=== PATIENT | female | born 1955 | race Caucasian/White ===

== ENCOUNTER 2021-02-20 06:07 | Outpatient (REF) | payer OTHER, SELFPAY ==
[2021-02-20 11:33] LABS: Glucose Urine UA NEG (NEG); Leukocyte Esterase Urine NEG (NEG); Nitrite Urine NEG (NEG); Specific Gravity - Urine 1.015 (1.005-1.025); Urine Blood NEG (NEG); Urine Ketones NEG (NEG); Urine Protein NEG (NEG-TRACE)
[2021-02-20 11:35] LABS: Appearance Urine HAZY; Color Urine YELLOW
[2021-02-20 11:41] LABS: Hematocrit 44.6 % (37-47); Hemoglobin 14.5 g/dl (12.0-16.0); Mean Corpuscular HGB Conc 32.5 g/dl (31.0-35.0); Mean Corpuscular Hemoglobin 29.9 pg (27.0-33.0); Mucus Urine 1+ /LPF; Platelet Count 299 X10*3/uL (160-400); RBC Urine 0-2 /HPF (0); Red Blood Count 4.85 X10*6/uL (4.20-5.50); Red Cell Distribution Width 13.3 % (11.0-16.0); Squamous Epithelial Cell Urine 1+ /LPF; WBC Urine 0-2 /HPF (0-4); White Blood Count 6.6 X10*3/uL (4.8-10.8)
[2021-02-20 12:09] LABS: Alanine Aminotransferase 20 U/L (0-31); Albumin Level 4.2 g/dL (3.5-5.0); Alkaline Phosphatase 85 U/L (39-117); Anion Gap 15 (12-20); Aspartate Amino Transferase 24 U/L (5-31); Bilirubin Total 0.6 mg/dL (0.0-1.0); Blood Urea Nitrogen 20 mg/dL (9-16); Calcium 9.1 mg/dL (8.4-10.2); Carbon Dioxide 25 mmol/L (22-29); Chloride 105 mmol/L (96-108); Cholesterol 282 mg/dL; Estimated Glomerular Filt Rate > 60; Glucose Fasting 103 mg/dL (60-99); HDL Cholesterol 68 mg/dL; LDL Cholesterol Calculated 200 mg/dl; Potassium 4.5 mmol/L (3.3-5.1); Sodium 140 mmol/L (135-145); Total Protein 6.7 g/dL (6.5-8.0); Triglycerides 72 mg/dL
[2021-02-20 12:13] LABS: TSH reflex Free T4 1.76 uIU/mL (0.32-4.0); Vitamin D 25-OH Total 31.7 ng/mL (>30)
== END 2021-02-20 06:08 | disposition home or self-care (01) ==
LOC: HO.HMGCLDS 06:07
PROVIDERS: PCP Internal Medicine; Visit Provider Internal Medicine
DX: Z00.00 Encounter for general adult medical examination without abnormal findings (principal); M81.0 Age-related osteoporosis without current pathological fracture; E78.5 Hyperlipidemia, unspecified
CPT/HCPCS: 36415; 80053; 80061; 81001; 82306; 84443; 85027

== ENCOUNTER 2021-03-05 09:27 | Outpatient (REF) | payer OTHER, SELFPAY ==
[2021-03-07 21:27] LABS: HPV mRNA E6/E7 Not Detected (Not Detected)
== END 2021-03-05 09:28 | disposition home or self-care (01) ==
LOC: HO.LAB 09:27
PROVIDERS: Visit Provider Internal Medicine
DX: Z01.419 Encounter for gynecological examination (general) (routine) without abnormal findings (principal); Z11.51 Encounter for screening for human papillomavirus (HPV); M85.80 Other specified disorders of bone density and structure, unspecified site; E78.5 Hyperlipidemia, unspecified
CPT/HCPCS: 87624; 88142

== ENCOUNTER 2021-03-24 15:48 | Outpatient (REF) | payer OTHER, SELFPAY ==
--- NOTE | ~2021-03-24 | MM_ITS ---
EXAMINATION: MM SCREENING DIGITAL BREAST TOMOSYNTHESIS, BILATERAL CLINICAL INFORMATION: Screening. Asymptomatic. The lifetime risk of breast cancer based on the Tyrer-Cuzick Model is 7.8%. COMPARISON: Mammography: February 15, 2020 and February 02, 2018 as well as July 27, 2016 TECHNIQUE: Digital breast tomosynthesis is performed in both the craniocaudal and mediolateral oblique views along with computer-aided detection (CAD). Synthesized 2D images are generated from the tomosynthesis. FINDINGS: There are scattered areas of fibroglandular density (ACR BI-RADS breast composition Category b). There are no significant masses, abnormal calcifications, or other abnormalities. MM/MM tomosynthesis screening BI IMPRESSION: There are no significant changes from prior study. ASSESSMENT: BI-RADS 1: Negative RECOMMENDATION: Routine annual mammography screening. This patient's information was entered into a reminder system with a target due date for their next mammogram.
== END 2021-03-24 15:49 | disposition home or self-care (01) ==
LOC: HO.MAMMO 15:48
PROVIDERS: Visit Provider Internal Medicine
DX: Z12.31 Encounter for screening mammogram for malignant neoplasm of breast (principal)
CPT/HCPCS: 77063; 77067

== ENCOUNTER 2021-06-05 09:12 | Day surgery (SDC) | payer OTHER, SELFPAY ==
--- NOTE | 2021-06-04 10:54 | HO.ANESPROP2 ---
Documented by User: Prabha Bro NP 06/04/21 10:56 HPI - Anesthesia Eval Consult details Narrative: 66yo F for Colonoscopy PMFSH Active Problems Active Problems: All Active Problems (Updated 05/29/21 @ 14:39 by Leda Lamas, [place]) Osteopenia (Acute) Mammogram normal (Acute) Lower back pain (Acute) Annual physical exam (Acute) Hyperlipidemia (Acute) Past Medical History Medical History Annual physical exam Hiatal hernia Hyperlipidemia Lower back pain Mammogram normal Osteopenia Family History Family History Other Mental health disorder Substance use disorder Surgical History Surgical History (Updated 05/29/21 @ 14:39 by Leda Lamas RN) History of History of left hip replacement History of melanoma excision Hx of colonoscopy Social History Social History Housing: House Patient Tobacco Use Status: Never used Tobacco Second Hand Smoke Exposure: Yes (as a child) Use of substances other than those prescribed or required for medical reasons: No Are you DNR?: No Advance Directives: Yes Advance Directives on File: Yes Advance Directives Date on File: 06/05/21 Recently lost weight without trying: No Nutrition Risks: No Nutritional Risk Current occupational status: employed Meds Allergies Allergy/AdvReac Type Severity Reaction Status Date / Time clindamycin Allergy Rash Verified 06/05/21 09:37 sulfamethoxazole Allergy Rash Verified 06/05/21 09:37 [From Bactrim] trimethoprim [From Bactrim] Allergy Rash Verified 06/05/21 09:37 Home Medications Medication Instructions Recorded Confirmed Last Taken Type cholecalciferol (vitamin D3) 50 50 mcg PO DAILY 05/29/21 05/29/21 Unknown History mcg (2,000 unit) capsule (Vitamin D3) fiber 05/29/21 05/29/21 Unknown History omega 4-gzq-lal-fish oil 1,200 mg cap PO 05/29/21 Unknown History (144 mg-216 mg) capsule (Fish Oil) Exam Exam Date and Time: June 04, 2021 1054 Pertinent Lab Results Pertinent Lab Results: Laboratory Tests 02/20/21 02/20/21 06:18 06:18 WBC 6.6 Hgb 14.5 Hct 44.6 Plt Count 299 Sodium 140 Potassium 4.5 Chloride 105 Carbon Dioxide 25 BUN 20 H Creatinine 0.83 Assessment and Plan Assessment Anesthesia Assessment: Chart Reviewed Documented by User: Rose Lebron MD 06/05/21 11:13 PMF Past Medical History Medical History Annual physical exam Hiatal hernia Hyperlipidemia Lower back pain Mammogram normal Osteopenia Functional capacity: independent ambulation Patient : No Family History Family History Other Mental health disorder Substance use disorder Family history of problems with anesthesia: No Surgical History Surgical History (Updated 05/29/21 @ 14:39 by Leda Lamas RN) History of History of left hip replacement History of melanoma excision Hx of colonoscopy History of Problems with Anesthesia: No Social History Social History Housing: House Patient Tobacco Use Status: Never used Tobacco Second Hand Smoke Exposure: Yes (as a child) Use of substances other than those prescribed or required for medical reasons: No Are you DNR?: No Advance Directives: Yes Advance Directives on File: Yes Advance Directives Date on File: 06/05/21 Recently lost weight without trying: No Nutrition Risks: No Nutritional Risk Current occupational status: employed Meds Allergies Allergy/AdvReac Type Severity Reaction Status Date / Time clindamycin Allergy Rash Verified 06/05/21 09:37 sulfamethoxazole Allergy Rash Verified 06/05/21 09:37 [From Bactrim] trimethoprim [From Bactrim] Allergy Rash Verified 06/05/21 09:37 Home Medications Medication Instructions Recorded Confirmed Last Taken Type cholecalciferol (vitamin D3) 50 50 mcg PO DAILY 05/29/21 05/29/21 Unknown History mcg (2,000 unit) capsule (Vitamin D3) fiber 05/29/21 05/29/21 Unknown History omega 5-qbs-wri-fish oil 1,200 mg cap PO 05/29/21 Unknown History (144 mg-216 mg) capsule (Fish Oil) Exam Airway Mallampati Class: II TM Dist: >3cm Neck ROM: Full Heart: RRR Lungs: CTA Assessment and Plan Final Anesthetic Review Family History of Problems with Anesthesia: No History of Problems with Anesthesia: No
[2021-06-05 09:38] VITALS: BMI 25.7
[2021-06-05 09:48] VITALS: BP 133/74; PULSE 73; RESP 16; TEMP 36.7; O2SAT 98
[2021-06-05] MEDS: Lactated Ringers 1,000 ML 100 ML IVCONT (10:04)
[2021-06-05] MEDS: Ampicillin Sodium 2 GM in 0.9 % Sodium Chloride 100 ML IV (10:12)
[2021-06-05] MEDS: Gentamicin Sulfate/NaCl 80 MG/100 ML PIGGYBACK 100 MG IV (10:32)
[2021-06-05 12:06] VITALS: BP 82/46; PULSE 80; RESP 16; TEMP 36.7; O2SAT 96
--- NOTE | 2021-06-05 12:07 | P.BOP_ITS ---
Brief Operative Note Date of Service: 06/05/21 Pre-op diagnosis: Screening Post-op diagnosis: other (Rectal polyps) Procedure: Colonoscopy to the cecum with snare polypectomy x 2 Surgeon: Casimiro Holloway Anesthesia: MAC Was an Carpet Layer Helper used for this Procedure?: No Estimated blood loss (mL): 2.0 Pathology: other (A. Rectal polyps) Condition: stable Disposition: PACU
[2021-06-05 12:21] VITALS: BP 102/59; PULSE 67; RESP 16; TEMP 36.7; O2SAT 98
--- NOTE | 2021-06-05 14:00 | HO.POSTANES ---
Post Anesthesia Evaluation Post Anesthesia Evaluation Vital Signs: Vital Signs Temp Pulse Resp BP Pulse Ox 06/05/21 12:21 98.0 F 67 16 102/59 L 98 06/05/21 12:06 98.0 F 80 16 82/46 L 96 06/05/21 09:48 98.0 F 73 16 133/74 98 Anesthesia: Monitored Mental Status: Awake Pain Control: Satisfactory Nausea/Vomiting: None Hydration: Adequate Anesthesia-Related Issues: No Anes. Related Issues
--- NOTE | 2021-06-05 22:30 | OP_ITS ---
SURGEON: Casimiro Holloway MD INDICATIONS: The patient presents for evaluation of personal history of colon polyps and colorectal cancer screening. Full consent has been obtained from her for this, including risks of bleeding and perforation. PREOPERATIVE DIAGNOSIS: POSTOPERATIVE DIAGNOSIS: PROCEDURE PERFORMED: Colonoscopy to cecum with snare polypectomy. ESTIMATED BLOOD LOSS: COMPLICATIONS: ANESTHESIA: Monitored anesthesia care. ASSISTANTS: SPECIMENS: PREOPERATIVE DIAGNOSES: Colorectal cancer screening and personal history of colon polyps. POSTOPERATIVE DIAGNOSES: Colorectal cancer screening and personal history of colon polyps, rectal polyps, diverticulosis and internal hemorrhoids. DESCRIPTION OF PROCEDURE: The patient was placed in the left lateral decubitus position. The digital rectal exam revealed no abnormalities. The Olympus video pediatric colonoscope was entered into the rectum and advanced easily to the cecum. Once in the cecum, I did identify normal-appearing cecal pouch with appendiceal orifice and a normal-appearing ileocecal valve. The entire cecum and ileocecal valve appeared normal. There was transillumination of light deep in the right lower quadrant. The scope was slowly withdrawn assessing all mucosal surfaces carefully. Preparation was excellent. There was a moderate amount of sigmoid diverticulosis. I did not visualize any sign of colitis nor angiodysplasia. The only polyps I visualized were in the distal rectum seen in the retroflexed position. There was one approximately 8 mm in diameter and grossly adenomatous, which was snared and recovered by suction. There was a small approximately 4 or 5 mm polyp, which was also snared and recovered by suction. Both polypectomy sites appeared clean, without any sign of residual polyp nor bleeding. Some small internal hemorrhoids were noted as well. The scope was straightened out and withdrawn from the patient. She tolerated the procedure well and was returned to the recovery area in stable condition. IMPRESSION: 1. Colon polyps, status post snare polypectomy. 2. Diverticulosis. 3. Internal hemorrhoids. PLAN: The results of the biopsies will be checked. I would recommend a repeat colonoscopy in 5 years for further surveillance. She was advised not to use any aspirin and NSAIDs for 1 week. She did receive preprocedure antibiotics for prophylaxis in regard to a hip replacement from last year and will be given a prescription for amoxicillin to use later today. MD ISADORA Warren/ELAN / [phone]
== END 2021-06-05 12:50 | disposition home or self-care (01) ==
PROVIDERS: PCP Internal Medicine; Visit Provider Internal Medicine
PROC: 0DJD8ZZ Inspection of Lower Intestinal Tract, Via Natural or Artificial Opening Endoscopic (ICD-10-PCS; CPT 45378; principal; 2021-06-05 10:50)
DX: Z12.11 Encounter for screening for malignant neoplasm of colon (principal); D12.8 Benign neoplasm of rectum; K57.30 Diverticulosis of large intestine without perforation or abscess without bleeding; K64.8 Other hemorrhoids; Z86.010 Personal history of colon polyps
CPT/HCPCS: 45385; 88305; J0290; J1580

== ENCOUNTER 2022-02-16 14:43 | Outpatient (REF) | payer OTHER, SELFPAY ==
--- NOTE | ~2022-02-16 | MM_ITS ---
EXAMINATION: BONE DENSITOMETRY CLINICAL INDICATION: Age-related osteoporosis without current pathological fracture. COMPARISON: Previous BD dated 02/15/2020 and baseline BD dated 02/02/2018, spine. This is the patient's baseline examination for the right hip. TECHNIQUE: Using a GAMINSIDE DXA System (software version: 13.1) manufactured by [employer], dual-energy x-ray absorptiometry was performed of the lumbar spine and right hip. There is prosthesis left hip precluding bone density measurement. The images are of good technical quality. Summary results are attached. FINDINGS: AP SPINE L1-L4: Current: BMD 1.025 g/cm2, Z-score 0.2, T-score -1.3, osteopenia, 5.9% decrease from previous, 5.7% decrease from baseline (<5% change is not significant). Prior: BMD 1.089 g/cm2. Baseline: BMD 1.087 g/cm2. RIGHT FEMUR, NECK: BMD 0.810 g/cm2, Z-score -0.2, T-score -1.6, osteopenia. Prior: No prior measurement on right. RIGHT FEMUR, TOTAL: BMD 0.860 g/cm2, Z-score 0.0, T-score -1.2, osteopenia. Prior: No prior measurement on right. IDENTIFIED RISK FACTORS: Menopause. HISTORY OF FRACTURE: None listed. MEDICATIONS: Vitamin D. MM/XR DEXA axial skeleton IMPRESSION: 1. DIAGNOSIS: Osteopenia based on the lowest T-score value of -1.6 in the femoral neck applying World Health Organization criteria. 2. 10-YEAR FRACTURE RISK PREDICTION, FRAX: Major osteoporotic fracture (clinical spine, forearm, hip or shoulder) 9.7%. Hip fracture 1.2%. 3. Treatment Recommendations: NOF guidelines recommend consideration for treatment in postmenopausal women and men age 50 and older presenting with the following: -A hip or vertebral (clinical or morphometric) fracture. -T-score less than or equal to -2.5 at the femoral neck or spine after appropriate evaluation to exclude secondary causes. -Low bone mass at the hip or spine and a 10-year fracture probability by FRAX of greater than or equal to 3% for hip fracture or greater than or equal to 20% for major osteoporotic fracture based on the [place] adapted WHO algorithm. 4. Other Recommendations: All treatment decisions require clinical judgment and consideration of individual patient factors, including patient preferences, comorbidities, previous drug use, risk factors not captured in the FRAX model (e.g. frailty, falls, vitamin D deficiency, increased bone turnover, interval significant decline in bone density) and possible under or overestimation of fracture risk by FRAX. Additional medical evaluation for secondary cause of low bone mineral density may be appropriate. FUTURE SCAN RECOMMENDATION: People with diagnosed cases of osteoporosis or at high risk for fracture should have regular bone mineral density tests. For patients eligible for Medicare, routine testing is allowed once every 2 years. The testing frequency can be increased to one year for patients who have rapidly progressing disease, those who are receiving or discontinuing medical therapy to restore bone mass, or have additional risk factors.
== END 2022-02-16 14:44 | disposition home or self-care (01) ==
LOC: HO.MAMMO 14:43
PROVIDERS: Visit Provider Internal Medicine
DX: Z13.820 Encounter for screening for osteoporosis (principal); M81.0 Age-related osteoporosis without current pathological fracture; Z78.0 Asymptomatic menopausal state
CPT/HCPCS: 77080

== ENCOUNTER 2022-02-25 06:29 | Outpatient (REF) | payer OTHER, SELFPAY ==
[2022-02-25 11:33] LABS: Hematocrit 43.7 % (37.0-47.0); Hemoglobin 14.3 g/dl (12.0-16.0); Mean Corpuscular HGB Conc 32.7 g/dl (31.0-35.0); Mean Corpuscular Volume 91.6 fL (80.0-98.0); Mean Platelet Volume 11.2 fL (9.4-12.3); Platelet Count 289 X10*3/uL (160-400); Red Blood Count 4.77 X10*6/uL (4.20-5.50); White Blood Count 5.7 X10*3/uL (4.8-10.8)
[2022-02-25 11:50] LABS: Appearance Urine CLEAR; Color Urine YELLOW; Glucose Urine UA NEG (NEG); Leukocyte Esterase Urine NEG (NEG); Nitrite Urine NEG (NEG); Urine Blood TRACE (NEG); Urine Ketones NEG (NEG); Urine Protein TRACE MG/DL (NEG-TRACE)
[2022-02-25 12:20] LABS: TSH reflex Free T4 1.58 uIU/mL (0.32-4.0); Vitamin D 25-OH Total 27.4 ng/mL (>30)
[2022-02-25 12:25] LABS: Alanine Aminotransferase 27 U/L (0-31); Albumin Level 4.4 g/dL (3.5-5.0); Anion Gap 12 (12-20); Aspartate Amino Transferase 26 U/L (5-31); Bilirubin Total 0.7 mg/dL (0.0-1.0); Blood Urea Nitrogen 19 mg/dL (9-16); Calcium 9.1 mg/dL (8.4-10.2); Carbon Dioxide 26 mmol/L (22-29); Chloride 108 mmol/L (96-108); Cholesterol 156 mg/dL; Estimated Glomerular Filt Rate > 60; Glucose Fasting 112 mg/dL (60-99); HDL Cholesterol 66 mg/dL; LDL Cholesterol Calculated 81 mg/dl; Potassium 4.5 mmol/L (3.3-5.1); Sodium 141 mmol/L (135-145); Total Protein 6.6 g/dL (6.5-8.0); Triglycerides 49 mg/dL
[2022-02-25 12:51] LABS: Alkaline Phosphatase 68 U/L (39-117)
[2022-02-25 14:13] LABS: Squamous Epithelial Cell Urine 1+ /LPF
[2022-02-25 14:14] LABS: Bacteria Urine TRACE /LPF
[2022-02-25 14:15] LABS: WBC Urine 0 /HPF (0-4)
== END 2022-02-25 06:30 | disposition home or self-care (01) ==
LOC: HO.HMGCLDS 06:29
PROVIDERS: Visit Provider Internal Medicine
DX: Z00.00 Encounter for general adult medical examination without abnormal findings (principal); M85.80 Other specified disorders of bone density and structure, unspecified site; E78.5 Hyperlipidemia, unspecified
CPT/HCPCS: 36415; 80053; 80061; 81001; 82306; 84443; 85027

== ENCOUNTER 2022-03-30 07:35 | Outpatient (REF) | payer OTHER, SELFPAY ==
--- NOTE | ~2022-03-30 | MM_ITS ---
EXAMINATION: MM SCREENING DIGITAL BREAST TOMOSYNTHESIS, BILATERAL CLINICAL INFORMATION: Screening. Asymptomatic. The lifetime risk of breast cancer based on the Tyrer-Cuzick Model is 7%. COMPARISON: Mammography: 03/24/2021, 02/15/2020, 02/02/2018 TECHNIQUE: Digital breast tomosynthesis is performed in both the craniocaudal and mediolateral oblique views along with computer-aided detection (CAD). Synthesized 2D images are generated from the tomosynthesis. FINDINGS: There are scattered areas of fibroglandular density (ACR BI-RADS breast composition Category b). There are no significant masses, abnormal calcifications, or other abnormalities. Parenchymal pattern is similar to prior studies. There is no developing density or architectural abnormality. The axilla and skin contours are unremarkable. No significant changes. MM/MM tomosynthesis screening BI IMPRESSION: No mammographic evidence of malignancy. ASSESSMENT: BI-RADS 1: Negative RECOMMENDATION: Routine annual mammography screening. This patient's information was entered into a reminder system with a target due date for their next mammogram.
== END 2022-03-30 07:36 | disposition home or self-care (01) ==
LOC: HO.MAMMO 07:35
PROVIDERS: PCP Internal Medicine; Visit Provider Internal Medicine
DX: Z12.31 Encounter for screening mammogram for malignant neoplasm of breast (principal)
CPT/HCPCS: 77063; 77067

== ENCOUNTER 2022-08-31 06:32 | Outpatient (REF) | payer OTHER, SELFPAY ==
[2022-08-31 11:57] LABS: Estimated Average Glucose 117 mg/dL; Hemoglobin A1C 149.6621 umol/L; Hemoglobin A1c % 5.7 %
[2022-08-31 12:48] LABS: Alanine Aminotransferase 22 U/L (0-31); Albumin Level 4.4 g/dL (3.5-5.0); Alkaline Phosphatase 83 U/L (39-117); Anion Gap 11 (12-20); Aspartate Amino Transferase 22 U/L (5-31); Bilirubin Total 0.8 mg/dL (0.0-1.0); Blood Urea Nitrogen 16 mg/dL (9-16); Calcium 9.3 mg/dL (8.4-10.2); Carbon Dioxide 28 mmol/L (22-29); Chloride 104 mmol/L (96-108); Cholesterol 177 mg/dL; Estimated Glomerular Filt Rate > 60; Glucose Fasting 114 mg/dL (60-99); HDL Cholesterol 68 mg/dL; LDL Cholesterol Calculated 95 mg/dl; Potassium 4.1 mmol/L (3.3-5.1); Sodium 139 mmol/L (135-145); Total Protein 6.5 g/dL (6.5-8.0); Triglycerides 72 mg/dL
[2022-08-31 12:55] LABS: Vitamin D 25-OH Total 30.3 ng/mL (>30)
== END 2022-08-31 06:33 | disposition home or self-care (01) ==
LOC: HO.HMGCLDS 06:32
PROVIDERS: PCP Internal Medicine; Visit Provider Internal Medicine
DX: Z00.00 Encounter for general adult medical examination without abnormal findings (principal); E78.5 Hyperlipidemia, unspecified; R73.9 Hyperglycemia, unspecified
CPT/HCPCS: 36415; 80053; 80061; 82306; 83036

== ENCOUNTER 2023-02-24 16:08 | Outpatient (REF) | payer OTHER, SELFPAY | END 2023-02-24 16:09 | disposition home or self-care (01) | LOC: HO.HMGCX 16:08 | PROVIDERS: PCP Internal Medicine; Visit Provider Physician Assistant | DX: R60.0 Localized edema (principal); Z91.81 History of falling | CPT/HCPCS: 73610 ==

== ENCOUNTER 2023-03-10 07:44 | Outpatient (AMB) | payer OTHER, SELFPAY ==
[2023-03-10 08:00] VITALS: BP 118/74; PULSE 62; O2SAT 97; BMI 26.4
--- NOTE | 2023-03-10 08:00 | A.OFFPC_ITS ---
Vital Signs 03/10/23 08:00 Height 5 ft 4 in Weight 154 lb BMI 26.4 BP 118/74 Blood Pressure Location Lt brachial Position Sitting Pulse 62 Pulse Source Pulse Oximeter Pulse Oximetry (%) 97 Oxygen Delivery Method Room Air Intake Visit Reasons: Annual PE Intake Note: Pt is here today for PE. Allergies clindamycin Allergy (Verified 03/10/23 08:03) Rash sulfamethoxazole [From Bactrim] Allergy (Verified 03/10/23 08:03) Rash trimethoprim [From Bactrim] Allergy (Verified 03/10/23 08:03) Rash Medication List - Last Reconciled 03/10/23 by Judy Jackson MD cholecalciferol (vitamin D3) (Vitamin D3) 50 mcg PO DAILY [fiber ] omega 1-oyh-kii-fish oil 1,200 (144-216) mg (Fish Oil) caps PO rosuvastatin 10 mg PO BEDTIME rosuvastatin 10 mg PO DAILY Tobacco use date assessed: 03/10/23 Fall risk assessment: No Falls in past year Last assessed Fall Risk: 03/10/23 Dental Screening Dental Screen Date: 03/10/23 Did you have a dental visit in the last 12 months?: Yes Did you have a dental problem in the last 6 months where you did not have access to dental care?: No Was dental information given to patient?: Patient has dentist HPI Annual PE HPI Details Pt presents for PE. She has been taking 10 mg of Crestor prescribed by cardiology and is planning to have a blood test in March. [facility] Medical History Annual physical exam Foot pain, left Hiatal hernia Hyperlipidemia Lower back pain Mammogram normal Osteopenia Surgical History History of History of left hip replacement History of melanoma excision Hx of colonoscopy Family History Father No problems noted. Mother Alzheimer's dementia Other Mental health disorder Substance use disorder Social History Housing: House Patient Tobacco Use Status: Never used Tobacco e-Cigarette/Vaping Use: Never Used Second Hand Smoke Exposure: Yes (as a child) Advance Directives Date on File: 06/05/21 service: No Current occupational status: employed Current occupational exposures/hazards: No Cognitive needs: No Hearing needs: Yes Vision needs: Yes Questionnaire Thrive Questionnaire Date Thrive assessed: 09/07/22 AUDIT C Alcohol Use Questionnaire (AUDIT-C) 1. How often do you have a drink containing alcohol?: 4 or more times a week 2. How many drinks containing alcohol do you have on a typical day when you are drinking?: 1 or 2 3. How often do you have six or more drinks on one occasion?: Never Total Score: 4 ANTHONY-7 AMB Questionnaire ANTHONY-7 Date ANTHNOY - 7 assessed: 09/07/22 Feeling nervous, anxious, or on edge: 0 = Not at all Worrying too much about different things: 0 = Not at all Trouble relaxin = Not at all Being so restless that it is hard to sit still: 0 = Not at all Becoming easily annoyed or irritable: 0 = Not at all Feeling afraid as if something awful might happen: 0 = Not at all Source: Developed by Drs. Casimiro French, Leelee Rowalnd, Raymond Monson and colleagues, with an educational terry from [employer]. Review of Systems Const All systems reviewed & are unremarkable except as noted in HPI and below Reports no additional complaints Eyes Reports no additional complaints ENT Reports no additional complaints Card Reports no additional complaints GI Reports no additional complaints Reports no additional complaints Psych Reports no additional complaints Physical exam (Primary Care) Vital Signs: Last Vital Signs Pulse 62 03/10/23 08:00 BP 118/74 03/10/23 08:00 Pulse Ox 97 03/10/23 08:00 Oxygen Delivery Method Room Air 03/10/23 08:00 BMI result Body Mass Index 26.4 Tobacco/Smoking Status: Tobacco use Status Tobacco use date assessed 03/10/23 03/10/23 08:07 Patient Tobacco Use Status Never used Tobacco 03/10/23 08:07 e-Cigarette/Vaping Use Never Used 03/10/23 08:01 Thrive Assessment: Date of Thrive Assessment Date Thrive assessed 09/07/22 03/10/23 08:01 Const General: no acute distress HENMT Head: Yes normal to inspection Ears: hearing grossly normal bilaterally Face and sinus: Yes normal facial exam Mouth: Normal oral and palatal mucosa present Throat: Yes posterior oropharynx normal Eyes General: appearance normal, both eyes and all related structures Neck Neck: Yes no lymphadenopathy and Yes supple Resp Effort & Inspection: normal respiratory effort Auscultation: clear to auscultation bilaterally Cardio Rhythm: regular rhythm Heart sounds: S1 normal heart sound present and S2 normal heart sound present GI Inspection: Yes normal to inspection Palpation (GI): Soft to palpation Percussion: Yes normal to percussion Auscultation: normal bowel sounds External Female Exam: normal external appearance Speculum Exam - Vagina: normal appearance of the vagina Speculum Exam - Cervix: normal appearance of the cervix Bimanual exam- vagina & uterus: normal bimanual exam Assessment and Plan Assessment & Plan (1) Hyperglycemia: Comment: A1C 5.7, 09/13 Code(s): R73.9 - Hyperglycemia, unspecified Plan: Patient return for fasting labs in March (2) Annual physical exam: Code(s): Z00.00 - Encounter for general adult medical examination without abnormal findings Plan: Well-balanced diet regular exercise discussed with the patient. She will schedule mammogram in March and is up-to-date with colonoscopy (3) Hyperlipidemia: Comment: Ca score 0, started on Crestor by [facility] 2020 Code(s): E78.5 - Hyperlipidemia, unspecified Plan: Continue 10 mg of Crestor Orders: Orders Pap Smear Today Z00.00 - Encounter for general adult medical examination without abnormal findings Comprehensive [place]. Panel Fast 365 Days E78.5 - Hyperlipidemia, unspecified, R73.9 - Hyperglycemia, unspecified, Z00.00 - Encounter for general adult medical examination without abnormal findings Hemoglobin A1c 365 Days E78.5 - Hyperlipidemia, unspecified, R73.9 - Hyperglycemia, unspecified, Z00.00 - Encounter for general adult medical examination without abnormal findings Lipid Panel 365 Days E78.5 - Hyperlipidemia, unspecified, R73.9 - Hyperglycemia, unspecified, Z00.00 - Encounter for general adult medical examination without abnormal findings TSH reflex Free T4 365 Days E78.5 - Hyperlipidemia, unspecified, R73.9 - Hyperglycemia, unspecified, Z00.00 - Encounter for general adult medical examination without abnormal findings Vitamin D 25-OH Total 365 Days E78.5 - Hyperlipidemia, unspecified, R73.9 - Hyperglycemia, unspecified, Z00.00 - Encounter for general adult medical examination without abnormal findings Complete Blood Count Auto Diff 365 Days E78.5 - Hyperlipidemia, unspecified, R73.9 - Hyperglycemia, unspecified, Z00.00 - Encounter for general adult medical examination without abnormal findings Coding Level of Care Code Est Pt Prev Care >65y(67121) Diagnoses Hyperglycemia R73.9 Annual physical exam Z00.00 Hyperlipidemia E78.5
== END 2023-03-10 09:12 | disposition home or self-care (01) ==
PROVIDERS: PCP Internal Medicine; Visit Provider Internal Medicine
DX: R73.9 Hyperglycemia, unspecified (principal); Z00.00 Encounter for general adult medical examination without abnormal findings; E78.5 Hyperlipidemia, unspecified
CPT/HCPCS: 99397

== ENCOUNTER 2023-03-10 09:23 | Outpatient (REF) | payer OTHER, SELFPAY | END 2023-03-10 09:24 | disposition home or self-care (01) | LOC: HO.LNP 09:23 | PROVIDERS: Visit Provider Internal Medicine | DX: Z12.4 Encounter for screening for malignant neoplasm of cervix (principal) | CPT/HCPCS: 88142 ==

== ENCOUNTER 2023-04-12 07:48 | Outpatient (REF) | payer OTHER, SELFPAY | END 2023-04-12 07:49 | disposition home or self-care (01) | LOC: HO.MAMMO 07:48 | PROVIDERS: PCP Internal Medicine; Visit Provider Internal Medicine | DX: Z12.31 Encounter for screening mammogram for malignant neoplasm of breast (principal) | CPT/HCPCS: 77063; 77067 ==

== ENCOUNTER → 2023-04-12 08:00 | Outpatient (BNV) | payer OTHER, SELFPAY | PROVIDERS: PCP Internal Medicine; Visit Provider Radiology Diagnostic Radiology | DX: Z12.31 Encounter for screening mammogram for malignant neoplasm of breast (principal) | CPT/HCPCS: 77063; 77067 ==

== ENCOUNTER 2023-05-20 06:14 | Outpatient (REF) | payer OTHER, SELFPAY ==
[2023-05-20 11:09] LABS: MANUAL DIFF FLAG NO
[2023-05-20 11:34] LABS: Basophils Absolute Auto 0.1 X10*3/uL (0.0-0.2); Basophils Percent Auto 1.1 % (0-2); Eosinophils Absolute Auto 0.1 X10*3/uL (0.0-0.4); Eosinophils Percent Auto 1.7 % (0-4); Hematocrit 45.3 % (37.0-47.0); Hemoglobin 14.8 g/dl (12.0-16.0); Imm Gran Abs Auto 0.01 X10*3/uL (0.00-0.03); Imm Gran Pct Auto 0.2 % (0.0-0.4); Lymphocytes Percent Auto 30.4 % (20-40); Mean Corpuscular HGB Conc 32.7 g/dl (31.0-35.0); Mean Corpuscular Hemoglobin 30.1 pg (27.0-33.0); Mean Corpuscular Volume 92.1 fL (80.0-98.0); Mean Platelet Volume 11.2 fL (9.4-12.3); Monocytes Absolute Auto 0.5 X10*3/uL (0.1-1.2); Monocytes Percent Auto 8.1 % (2-11); Neutrophils Absolute Auto 3.8 x10*3/uL (2.0-8.3); Neutrophils Percent Auto 58.5 % (45-73); Platelet Count 293 X10*3/uL (160-400); Red Blood Count 4.92 X10*6/uL (4.20-5.50); White Blood Count 6.5 X10*3/uL (4.8-10.8)
[2023-05-20 11:58] LABS: Estimated Average Glucose 111 mg/dL; Hemoglobin A1C 124.4188 umol/L; Hemoglobin A1c % 5.5 % (<6.0)
[2023-05-20 12:05] LABS: Alanine Aminotransferase 17 U/L (0-31); Albumin Level 4.2 g/dL (3.5-5.0); Alkaline Phosphatase 74 U/L (39-117); Anion Gap 14 (12-20); Aspartate Amino Transferase 20 U/L (5-31); Bilirubin Total 0.8 mg/dL (0.0-1.0); Blood Urea Nitrogen 19 mg/dL (9-16); Calcium 9.5 mg/dL (8.4-10.2); Carbon Dioxide 25 mmol/L (22-29); Chloride 106 mmol/L (96-108); Cholesterol 155 mg/dL (<200); Estimated Glomerular Filt Rate > 60; Glucose Fasting 107 mg/dL (60-99); HDL Cholesterol 58 mg/dL (>40); LDL Cholesterol Calculated 86 mg/dL (<100); Potassium 4.1 mmol/L (3.3-5.1); Sodium 141 mmol/L (135-145); Total Protein 6.6 g/dL (6.5-8.0); Triglycerides 59 mg/dL (<150)
[2023-05-20 12:09] LABS: TSH reflex Free T4 1.92 uIU/mL (0.32-4.0); Vitamin D 25-OH Total 41.9 ng/mL (>30)
[2023-05-20 12:16] LABS: Creatinine Urine 132.21 mg/dL; Microalbumin Urine < 5.0 mg/L
== END 2023-05-20 06:15 | disposition home or self-care (01) ==
LOC: HO.HMGCLDS 06:14
PROVIDERS: PCP Internal Medicine; Visit Provider Internal Medicine
DX: Z00.00 Encounter for general adult medical examination without abnormal findings (principal); R73.9 Hyperglycemia, unspecified; E78.5 Hyperlipidemia, unspecified
CPT/HCPCS: 36415; 80053; 80061; 82043; 82306; 82570; 83036; 84443; 85025

== ENCOUNTER 2024-03-13 07:51 | Outpatient (AMB) | payer OTHER, SELFPAY ==
[2024-03-13 08:23] VITALS: BP 118/86; PULSE 71; O2SAT 95; BMI 26.4
--- NOTE | 2024-03-13 08:23 | MHC.PC.OV ---
Vital Signs 03/13/24 08:23 Height 5 ft 4.5 in Weight 156 lb BMI 26.4 BP 118/86 Blood Pressure Location Lt brachial Position Sitting Pulse 71 Pulse Source Pulse Oximeter Pulse Oximetry (%) 95 Oxygen Delivery Method Room Air Intake Visit Reasons: PE Intake Note: Pt is here today for her PE: last mammogram 04/12/23, bone density scan 02/16/22, colonoscopy 06/05/21 Allergies clindamycin Allergy (Verified 03/13/24 08:24) Rash sulfamethoxazole [From Bactrim] Allergy (Verified 03/13/24 08:24) Rash trimethoprim [From Bactrim] Allergy (Verified 03/13/24 08:24) Rash Medication List - Last Reconciled 03/13/24 by Judy Jackson MD cholecalciferol (vitamin D3) (Vitamin D3) 50 mcg PO DAILY magnesium 350 mg PO DAILY rosuvastatin 10 mg PO DAILY Tobacco use date assessed: 03/13/24 Fall risk assessment: 2 + Falls in past year Last assessed Fall Risk: 03/13/24 Dental Screening Dental Screen Date: 03/13/24 Did you have a dental visit in the last 12 months?: Yes Did you have a dental problem in the last 6 months where you did not have access to dental care?: Yes Was dental information given to patient?: Patient has dentist HPI PE HPI Details Pt presents for PE. [facility] Medical History (Updated 03/13/24 @ 08:58 by Judy Jackson MD) Foot pain, left Hiatal hernia Osteopenia Mammogram normal Lower back pain Annual physical exam Hyperlipidemia Surgical History History of History of melanoma excision Hx of colonoscopy History of left hip replacement Family History Father No problems noted. Mother Alzheimer's dementia Other Mental health disorder Substance use disorder Social History Housing: House Patient Tobacco Use Status: Never used Tobacco e-Cigarette/Vaping Use: Never Used Second Hand Smoke Exposure: Yes (as a child) Advance Directives Date on File: 06/05/21 service: No Current occupational status: employed Current occupational exposures/hazards: No Cognitive needs: No Hearing needs: Yes Vision needs: Yes Questionnaire PHQ-9 Over the last 2 weeks, how often have you been bothered by any of the following problems? 1. Little interest or pleasure in doing things: not at all 2. Feeling down, depressed, or hopeless: not at all 3. Trouble falling or staying asleep, or sleeping too much: not at all 4. Feeling tired or having little energy: not at all 5. Poor appetite or overeating: not at all 6. Feeling bad about yourself - or that you are a failure or have let yourself or your family down: not at all 7. Trouble concentrating on things, such as reading the newspaper or watching television: not at all 8. Moving or speaking so slowly that other people could have noticed. Or the opposite - being so fidgety or restless that you have been moving around a lot more than usual: not at all 9. Thoughts that you would be better off or of hurting yourself in some way: not at all Total score: 0 Depression Screening Interpretation: Negative Depression Screening Done: Yes Source: Developed by Drs. Casimiro French, Leelee Rowland, Raymond Monson and colleagues, with an educational terry from [employer]. Thrive Questionnaire Date Thrive assessed: 03/07/24 I am a: Patient What is your living situation today?: I have a steady place to live Within the past 12 months, did the food you bought not last and you didn't have the money to get more?: Never true Within the past 12 months, did you worry whether your food would run out before you got money to buy more?: Never true Do you have trouble paying for medicines?: No Do you have trouble getting transportation to medical appointments?: No Do you have trouble paying your heating and electricity bill?: No Do you have trouble taking care of your child, family member or friend?: No Do you have trouble with day-to-day activities such as bathing, preparing meals, shopping, managing finances, etc.?: No Are you currently unemployed and looking for a job?: No Are you interested in more education?: Yes Please select the resources that you would like help with: Housing/[facility] Currently or been in a relationship where the following occur: No concerns reported THRIVE Score: 0 AUDIT C Alcohol Use Questionnaire (AUDIT-C) 1. How often do you have a drink containing alcohol?: 2-3 times a week 2. How many drinks containing alcohol do you have on a typical day when you are drinking?: 1 or 2 3. How often do you have six or more drinks on one occasion?: Never Total Score: 3 ANTHONY-7 AMB Questionnaire ANTHONY-7 Date ANTHONY - 7 assessed: 09/07/22 Feeling nervous, anxious, or on edge: 0 = Not at all Not being able to stop or control worryin = Not at all Worrying too much about different things: 0 = Not at all Trouble relaxin = Not at all Being so restless that it is hard to sit still: 0 = Not at all Becoming easily annoyed or irritable: 0 = Not at all Feeling afraid as if something awful might happen: 0 = Not at all Total ANTHONY-7 score (0-4 normal; 5-9 mild; 10-14 moderate; 15-21 severe): 0 Source: Developed by Drs. Casimiro French, Leelee Rowland, Raymond Monson and colleagues, with an educational terry from [employer]. Review of Systems Const All systems reviewed & are unremarkable except as noted in HPI and below Eyes Reports no additional complaints ENT Reports no additional complaints Card Reports no additional complaints Resp Reports no additional complaints GI Reports no additional complaints Reports no additional complaints Physical exam (Primary Care) Vital Signs: Last Vital Signs Pulse 71 03/13/24 08:23 BP 118/86 03/13/24 08:23 Pulse Ox 95 03/13/24 08:23 Oxygen Delivery Method Room Air 03/13/24 08:23 BMI result Body Mass Index 26.4 Tobacco/Smoking Status: Tobacco use Status Tobacco use date assessed 03/13/24 03/13/24 08:27 Patient Tobacco Use Status Never used Tobacco 03/13/24 08:27 e-Cigarette/Vaping Use Never Used 03/13/24 08:27 Depression Screening Interpretation: Negative Thrive Assessment: Date of Thrive Assessment Date Thrive assessed 03/07/24 03/13/24 08:27 Currently or been in a relationship where the following occur: No concerns reported Const General: no acute distress HENMT Head: Yes normal to inspection Ears: hearing grossly normal bilaterally Face and sinus: Yes normal facial exam Mouth: Normal oral and palatal mucosa present Throat: Yes posterior oropharynx normal Eyes General: appearance normal, both eyes and all related structures Neck Neck: Yes no lymphadenopathy and Yes supple Resp Effort & Inspection: normal respiratory effort Auscultation: clear to auscultation bilaterally Cardio Rhythm: regular rhythm Heart sounds: S1 normal heart sound present and S2 normal heart sound present GI Inspection: Yes normal to inspection Palpation (GI): Soft to palpation Percussion: Yes normal to percussion Auscultation: normal bowel sounds Assessment and Plan Assessment & Plan (1) Lower back pain: Comment: chcronic , better with PT Code(s): M54.5 - Low back pain (2) Ankle sprain: Code(s): S93.409A - Sprain of unspecified ligament of unspecified ankle, initial encounter (3) Hyperlipidemia: Comment: Ca score 0, started on Crestor by [facility] 2020 Code(s): E78.5 - Hyperlipidemia, unspecified Plan: Continue statin return for fasting blood work (4) Annual physical exam: Code(s): Z00.00 - Encounter for general adult medical examination without abnormal findings Plan: Well-balanced diet regular physical activity discussed with the patient she is up-to-date with mammogram colonoscopy and Pap smear. Orders: Orders PT Evaluation and Treatment Today M54.5 - Low back pain, S93.409A - Sprain of unspecified ligament of unspecified ankle, initial encounter Coding Level of Care Code Est Pt Prev Care >65y(09293) Diagnoses Lower back pain M54.5 Ankle sprain S93.409A Hyperlipidemia E78.5 Annual physical exam Z00.00
== END 2024-03-13 08:59 | disposition home or self-care (01) ==
PROVIDERS: PCP Internal Medicine; Visit Provider Internal Medicine
DX: M54.50 Low back pain, unspecified (principal); S93.409A Sprain of unspecified ligament of unspecified ankle, initial encounter; E78.5 Hyperlipidemia, unspecified; Z00.00 Encounter for general adult medical examination without abnormal findings
CPT/HCPCS: 99397

== ENCOUNTER 2024-04-17 08:07 | Outpatient (REF) | payer OTHER, SELFPAY ==
--- NOTE | ~2024-04-17 | MM_ITS ---
EXAMINATION: BONE DENSITOMETRY CLINICAL INDICATION: Asymptomatic menopausal state. COMPARISON: Previous BD dated 02/16/2022 and baseline BD dated 02/02/2018, spine; 02/16/2022, right hip. TECHNIQUE: Using a Volt DXA System (software version: 13.1) manufactured by [employer], dual-energy x-ray absorptiometry was performed of the lumbar spine and right hip. The images are of good technical quality. Summary results are attached. FINDINGS: RIGHT FEMUR, NECK: Current: BMD 0.778 g/cm2, Z-score -0.4, T-score -1.9, osteopenia. Baseline: BMD 0.810 g/cm2. RIGHT FEMUR, TOTAL: Current: BMD 0.849 g/cm2, Z-score 0.0, T-score -1.3, osteopenia, 1.3% decrease from baseline (<5% change is not significant). Baseline: BMD 0.860 g/cm2. AP SPINE L1-L4: Current: BMD 1.019 g/cm2, Z-score 0.2, T-score -1.3, osteopenia, 0.6% decrease from previous, 6.3% decrease from baseline (<5% change is not significant). Prior: BMD 1.025 g/cm2. Baseline: BMD 1.087 g/cm2. IDENTIFIED RISK FACTORS: Menopause. HISTORY OF FRACTURE: None listed. MEDICATIONS: Vitamin D. MM/XR DEXA axial skeleton IMPRESSION: 1. DIAGNOSIS: Osteopenia based on the lowest T-score value of -1.9 in the femoral neck applying World Health Organization criteria. 2. 10-YEAR FRACTURE RISK PREDICTION, FRAX: Major osteoporotic fracture (clinical spine, forearm, hip or shoulder) 11.1%. Hip fracture 1.8%. 3. Treatment Recommendations: NOF guidelines recommend consideration for treatment in postmenopausal women and men age 50 and older presenting with the following: -A hip or vertebral (clinical or morphometric) fracture. -T-score less than or equal to -2.5 at the femoral neck or spine after appropriate evaluation to exclude secondary causes. -Low bone mass at the hip or spine and a 10-year fracture probability by FRAX of greater than or equal to 3% for hip fracture or greater than or equal to 20% for major osteoporotic fracture based on the [place] adapted WHO algorithm. 4. Other Recommendations: All treatment decisions require clinical judgment and consideration of individual patient factors, including patient preferences, comorbidities, previous drug use, risk factors not captured in the FRAX model (e.g. frailty, falls, vitamin D deficiency, increased bone turnover, interval significant decline in bone density) and possible under or overestimation of fracture risk by FRAX. Additional medical evaluation for secondary cause of low bone mineral density may be appropriate. FUTURE SCAN RECOMMENDATION: People with diagnosed cases of osteoporosis or at high risk for fracture should have regular bone mineral density tests. For patients eligible for Medicare, routine testing is allowed once every 2 years. The testing frequency can be increased to one year for patients who have rapidly progressing disease, those who are receiving or discontinuing medical therapy to restore bone mass, or have additional risk factors. Electronically signed by: Josef Montero MD 04/18/2024 10:33 AM EDT RP
--- NOTE | ~2024-04-17 | MM_ITS ---
EXAMINATION: MM SCREENING DIGITAL BREAST TOMOSYNTHESIS, BILATERAL CLINICAL INFORMATION: Screening. Asymptomatic. COMPARISON: Mammography: Comparison is made with available priors TECHNIQUE: Digital breast tomosynthesis is performed in both the craniocaudal and mediolateral oblique views along with computer-aided detection (CAD). Synthesized 2D images are generated from the tomosynthesis. FINDINGS: There are scattered areas of fibroglandular density (ACR BI-RADS breast composition Category b). Right: Asymmetry superior breast middle depth with associated architectural distortion. No suspicious calcifications or other abnormal findings. Left: There are no significant masses, abnormal calcifications, or other abnormalities. MM/MM tomosynthesis screening BI IMPRESSION: Left: No mammographic evidence of malignancy. Right: Asymmetry additional imaging and ultrasound recommended at this time. ASSESSMENT: BI-RADS BI-RADS 0 - Incomplete: Needs additional Imaging. RECOMMENDATION: 1. Additional views of the right breast 2. Targeted ultrasound if warranted after review of the additional views. 3. Radiology department staff will contact the patient for additional imaging. Additional Imaging required This examination should not preclude the clinical evaluation of a suspicious palpable abnormality. This patient's information was entered into a reminder system with a target due date for their next mammogram. Electronically signed by: Ernestina Whitney DO 05/11/2024 12:57 PM EDT
== END 2024-04-17 08:08 | disposition home or self-care (01) ==
LOC: HO.MAMMO 08:07
PROVIDERS: Absent Provider Nurse Practitioner Family; PCP Internal Medicine; Visit Provider Internal Medicine
DX: Z12.31 Encounter for screening mammogram for malignant neoplasm of breast (principal); Z13.820 Encounter for screening for osteoporosis; Z78.0 Asymptomatic menopausal state
CPT/HCPCS: 77063; 77067; 77080

== ENCOUNTER → 2024-04-17 08:15 | Outpatient (BNV) | payer OTHER, SELFPAY | PROVIDERS: Absent Provider Nurse Practitioner Family; PCP Internal Medicine; Visit Provider Internal Medicine | DX: Z12.31 Encounter for screening mammogram for malignant neoplasm of breast (principal) | CPT/HCPCS: 77063; 77067 ==

== ENCOUNTER 2024-05-07 06:03 | Outpatient (REF) | payer OTHER, SELFPAY ==
[2024-05-07 10:17] LABS: MANUAL DIFF FLAG NO
[2024-05-07 10:22] LABS: Basophils Absolute Auto 0.1 X10*3/uL (0.0-0.2); Basophils Percent Auto 0.8 % (0-2); Eosinophils Absolute Auto 0.1 X10*3/uL (0.0-0.4); Eosinophils Percent Auto 1.3 % (0-4); Hematocrit 42.5 % (37.0-47.0); Hemoglobin 14.6 g/dl (12.0-16.0); Imm Gran Abs Auto 0.02 X10*3/uL (0.00-0.03); Imm Gran Pct Auto 0.3 % (0.0-0.4); Lymphocytes Percent Auto 28.7 % (20-40); Mean Corpuscular HGB Conc 34.4 g/dl (31.0-35.0); Mean Corpuscular Hemoglobin 30.9 pg (27.0-33.0); Mean Corpuscular Volume 89.9 fL (80.0-98.0); Mean Platelet Volume 10.8 fL (9.4-12.3); Monocytes Absolute Auto 0.6 X10*3/uL (0.1-1.2); Neutrophils Absolute Auto 4.3 x10*3/uL (2.0-8.3); Neutrophils Percent Auto 60.9 % (45-73); Platelet Count 273 X10*3/uL (160-400); Red Blood Count 4.73 X10*6/uL (4.20-5.50); Red Cell Distribution Width 13.3 % (11.0-16.0); White Blood Count 7.1 X10*3/uL (4.8-10.8)
[2024-05-07 10:32] LABS: Estimated Average Glucose 117 mg/dL; Hemoglobin A1c % 5.7 % (<6.0)
[2024-05-07 11:03] LABS: Alanine Aminotransferase 22 U/L (0-31); Albumin Level 4.2 g/dL (3.5-5.0); Alkaline Phosphatase 80 U/L (39-117); Anion Gap 11 (12-20); Aspartate Amino Transferase 25 U/L (5-31); Bilirubin Total 0.7 mg/dL (0.0-1.0); Blood Urea Nitrogen 13 mg/dL (9-16); Calcium 9.2 mg/dL (8.4-10.2); Carbon Dioxide 26 mmol/L (22-29); Chloride 107 mmol/L (96-108); Cholesterol 160 mg/dL (<200); Estimated Glomerular Filt Rate > 60; Glucose Fasting 113 mg/dL (60-99); HDL Cholesterol 62 mg/dL (>40); LDL Cholesterol Calculated 86 mg/dL (<100); Potassium 3.8 mmol/L (3.3-5.1); Sodium 140 mmol/L (135-145); Total Protein 6.5 g/dL (6.5-8.0); Triglycerides 60 mg/dL (<150)
[2024-05-07 11:10] LABS: TSH reflex Free T4 2.82 uIU/mL (0.32-4.0); Vitamin D 25-OH Total 51.2 ng/mL (>30)
== END 2024-05-07 06:04 | disposition home or self-care (01) ==
LOC: HO.HMGCLDS 06:03
PROVIDERS: PCP Internal Medicine; Visit Provider Internal Medicine
DX: Z00.00 Encounter for general adult medical examination without abnormal findings (principal); R73.9 Hyperglycemia, unspecified; E78.5 Hyperlipidemia, unspecified
CPT/HCPCS: 36415; 80053; 80061; 82306; 83036; 84443; 85025

== ENCOUNTER 2024-06-21 14:34 | Outpatient (REF) | payer OTHER, SELFPAY ==
--- NOTE | ~2024-06-21 | MM_ITS ---
EXAMINATION: MM DIAGNOSTIC DIGITAL BREAST TOMOSYNTHESIS, RIGHT CLINICAL INFORMATION: Diagnostic for evaluation of 1-view asymmetry seen superior right breast middle depth MLO view only on screening exam. No definite correlate on the CC projection. COMPARISON: Mammography: Screening mammography 04/17/2024, and exams 04/12/2023, 03/30/2022, 03/24/2021, and dating back to 2018. TECHNIQUE: Digital breast tomosynthesis is performed in the following views: Full field 3-D digital right ML view, as well as a 3-D spot compression right MLO view. Computer-aided diagnosis was used for this study. FINDINGS: There are scattered areas of fibroglandular density (ACR BI-RADS breast composition Category b). Spot compression and diagnostic views demonstrate the 1 view asymmetry on the MLO view has no CC correlate, and does not persist on spot compression or ML projections. Finding is consistent with superimposition artifact of overlapping normal breast tissue. In retrospect, this had a similar appearance on multiple older exams. No suspicious findings right breast. MM/MM tomosynthesis added views R IMPRESSION: -There are no persistent findings suspicious for malignancy. -Area of mammographic concern superior MLO view right breast middle depth does not persist on diagnostic images. This is consistent with superimposition artifact of normal overlapping tissues. -Recommend the patient resume routine annual screening mammography. ASSESSMENT: BI-RADS BI-RADS 1 - Negative RECOMMENDATION: 1 year F/U Results were provided to the patient at time of visit by the technologist. This patient's information was entered into a reminder system with a target due date for their next mammogram. Electronically signed by: Jose Simon MD 06/21/2024 03:10 PM EDT
== END 2024-06-21 14:35 | disposition home or self-care (01) ==
LOC: HO.MAMMO 14:34
PROVIDERS: PCP Internal Medicine; Visit Provider Internal Medicine
DX: N64.89 Other specified disorders of breast (principal)
CPT/HCPCS: 77061; 77065

== ENCOUNTER → 2024-06-21 15:00 | Outpatient (BNV) | payer OTHER, SELFPAY | PROVIDERS: PCP Internal Medicine; Visit Provider Radiology Diagnostic Radiology | DX: R92.8 Other abnormal and inconclusive findings on diagnostic imaging of breast (principal) | CPT/HCPCS: 77061; 77065 ==

== ENCOUNTER 2025-04-18 06:03 | Outpatient (REF) | payer OTHER, SELFPAY ==
--- OUTSIDE RECORDS SUMMARY | 2025-04-18 06:06 | XMS_ITS | Patient Health Record ---
Author Organization [facility] Address [address] [place] [address] Care Team Providers Care Physiological Chemist Name Role Phone Judy Jackson MD Primary Care Provider Carlito Gonzalez Unavailable [phone] Allergies No Known Allergies Reason For Referral No Information Medications Medication SIG (Take, Route, Fr equency, Duration) Notes Start Date End Date Status Fiber 0.52 GM 2 capsules with 8 ou nces of liquid Orally once a day Active Fish Oil 1200 MG 1 capsule Orally Onc e a day for 30 day(s) 05/23/2019 Active Vitamin D 2000 UNIT 1 tablet Orally Once a day Active Magnesium Active Immunizations Vaccine Route Administration Date Status Comme nts Influenza Unknown 05/22/2020 Administered Influenza Unknown 05/23/2019 Refused Social History Tobacco Use: Social History Observation Description Date Details (start date - stop date) Never Smoker NA - NA Tobacco Use/Smoking Question Answer Notes Patient is a nonsmoker Alcohol Screen Question Answer Notes Did you have a drink contain ing alcohol in the past year? Yes How often did you have a dri nk containing alcohol in the past year? 4 or more times a week (4 points) How many drinks did you have on a typical day when you were drinking in the past year? 1 or 2 drinks (0 point) How often did you have 6 or more drinks on one occasion in the past year? Never (0 point) Points 4 Interpretation Positive Section Notes: Nonsmoker; 1 drink per day Moved here from [place] 2016 Nonsmoker; 1 drink per day Moved here from [place] 2016 Nonsmoker; 1 drink per day Moved here from [place] 2016 Problems Problem Type SNOMED Code ICD Code Onset Dates Problem Status W/U Status Risk Notes Problem 467985438 Encounter for screening for malignant neoplasm of colon (Z12.11) Active confirmed Problem 659898299 History of adenomatous polyp of colon (Z86.010) Active confirmed Problem 614366779 Preprocedural examination (Z01.818) Active confirmed Problem Diverticulosis of colon (229411929) Diverticulosis of colon (K57.30) Active confirmed Plan Of Treatment Pending Test Test Name Order Date Pathology 06/05/2021 Future Test Test Name Order Date COLONOSCOPY 05/23/2019 COLONOSCOPY 05/01/2021 Insurance Providers Payer Name Payer Address Payer Phone Subscriber Number Group Number Insured Name Patient Relationship to Insured Coverage Start Date Coverage End Date [employer](REFERR AL IS NEEDED) [address] [place] [address] [id number] [place] ROSSI Self - patient is the insured Medical (General) History Medical History History ICD Code Melanoma as below---followed at [facility] in [place] Denies [place],DM,CVA,Lung disease,renal dise ase Colonoscopy in 05/2014--1 sm all tubular adenoma removed from cecum; colonoscopy age 51ish with removal of 5 polyps by her report--both procedures were in [place] Told of a hiatal hernia on a CT scan from 03/2019 at [facility] done for F/U of her melanoma--the HH is asymptomatic Surgical History Surgery Date(Month/Year) Melanoma right inner thigh--clear margin s--in [place] 01/2017 C- section 1993 [employer] surgery x2 for abnormal 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
--- OUTSIDE RECORDS SUMMARY | 2025-04-18 06:06 | XMS_ITS | Clinical Summary ---
Author Organization [facility] Address [address] [place] [address] Phone Care Team Providers Care Billet Sawyer Name Role Phone Self-Referred, Patient Unavailable Unavailab le System, Provider Not In PhD Unavailable Unav ailable Judy Jackson MD Primary Care Provider [phone] Allergies Active Allergy Reactions Criticality Noted Date Comments Sulfamethoxazole-Trimethoprim Hives 2017 Clindamycin Hcl Hives 09/26/2017 Medications cholecalciferol (VITAMIN D3) 2,000 unit capsule Take 2,000 Units by mouth daily. Active magnesium 30 mg tablet Take 400 mg by mouth daily. Active Active Problems Problem Noted Date Diagnosed Date Melanoma of thigh, right 03/25/2017 Encounters Date Type Department Care Team Description 03/11/2025 10:00 AM EDT Office Visit [facility] [address] [place] [address], 5th [place] [address] Katina Santiago MD, MPH Malignant melanoma of right lower extremity including hip (Primary Dx); Neoplasm of uncertain behavior of skin; Nevus, non-neoplastic; Seborrheic keratoses; Lentigo from Last 3 Months Immunizations Immunization Administration Dates Next Due COVID-19 (Pre-06/13) Pfizer Vaccine, mRNA, PF ,11/15/2020 Social History Tobacco Use Types Packs/Day Years Used Date Smoking Tobacco: Never Smokeless Tobacco: Never Education Answer Date Recorded Are you interested in more education? Not on calista e 12/17/2022 Are you concerned about learning? Not on file 12/17/2022 No 12/17/2022 No 12/17/2022 Digital Access Answer Date Recorded No 01/17/2023 No 01/17/2023 No 01/17/2023 Reliable internet access at home? Not on file 01/17/2023 Device with a working camera? Not on file Comments Unknown Sex and Gender Information Value Date Recorded Sex Assigned at Female 05/24/2020 11:59 AM EDT Legal Sex Female 10:06 AM EDT Gender Identity Female 05/24/2020 11:59 AM EDT Sexual Orientation Straight 05/24/2020 11 :59 AM EDT Last Filed Vital Signs Vital Sign Reading Time Taken Comments Blood Pressure 145/70 03/11/2025 9:52 AM EDT Pulse 58 03/11/2025 9:52 AM EDT Temperature 36.3 C (97.4 F) 03/11/2025 9:51 AM EDT Respiratory Rate 18 2024 9:51 AM EDT Oxygen Saturation 98% 03/11/2025 9:52 AM EDT Inhaled Oxygen Concentration - - Weight 71.2 kg (156 lb 15.5 oz) 2024 9:51 AM EDT Height 162.7 cm (5' 4.06 ) 2024 9:51 AM ED T Body Mass Index 26.9 2024 9:51 AM EDT Plan of Treatment Upcoming Encounters Date Type Department Care Team (Late st Contact Info) Description 05/06/2025 9:45 AM EDT Appointment [facility], [facility] [place], Ultrasound [address] [place] [address] Katina Santiago MD, MPH [address] [place] [address] [place] [address] [email or web address] 03/10/2026 7:30 AM EDT [facility], Ultrasound [address] [place] [address] Katina Santiago MD, MPH [address] [place] [address] [place] [address] [email or web address] 03/10/2026 11:00 AM EDT Office Visit [facility] [place] [address] [facility], 5th [place] [address] Katina Santiago MD, MPH [address] [facility] [place] [address] [email or web address] Health Maintenance Due Date Last Done Comments Adult Td,Tdap Booster 1955 LIPID PANEL 1955 DEPRESSION SCREENING 1968 HEPATITIS C SCREENING 1974 SCREENING FOR DIABETES 1991 MAMMOGRAM 1996 COLOGUARD 2001 COLONOSCOPY 2001 COLORECTAL CANCER SCREENING 2001 FIT TEST 2001 FOBT 2001 SIGMOIDOSCOPY 2001 VIRTUAL COLONOSCOPY 2001 PNEUMOCOCCAL VACCINES (50+ years) (2 of 2 - PPSV23) 09/21/2020 07/27/2020 OSTEOPOROSIS SCREENING INITIAL (ONE-TIME) 2021 SMOKING STATUS SCREENING (Once After 26 Yrs) Completed 10/29/2019 ZOSTER VACCINES Completed 07/05/2021, 04/13/2021 RSV VACCINE Completed 06/26/2023 COVID-19 VACCINE Completed 12/16/2024, , 08/04/2023, Additional history exists HEPATITIS A VACCINES Aged Out No long er eligible based on patient's age to complete this topic HIB VACCINES Aged Out No longer eligi ble based on patient's age to complete this topic MENINGOCOCCAL VACCINES (ACWY) Aged Out No longer eligible based on patient's age to complete this topic MENINGOCOCCAL VACCINES (B) Aged Out N o longer eligible based on patient's age to complete this topic Medical Devices Not on file Procedures Procedure Name Priority Date/Time Associated Diagnosis Comments DERMATOPATHOLOGY Routine 03/11/2025 12:0 0 AM EDT from Last 3 Months Results * Dermatopathology (03/11/2025 12:00 AM EDT) 03/11/2025 03/12/2025 Narrative [facility] - 03/18/2025 4:57 PM EDT CASE: [id number] PATIENT: LA NENA ROSSI Date: 1955 Sex: Female [facility] Department of Pathology [address] [place], [place] [address]IA License No.: [id number] Systems Checkout Mechanic: Dr. Ace Madrigal M.D., Ph.D. Physician: KATINA SANTIAGO MD, MPH Procedure Date: 03/11/2025 Pathologist: Radha Shaw M.D., Ph.D. PATHOLOGIC DIAGNOSIS: A. SKIN, CENTRAL UPPER CHEST, SHAVE REMOVAL: Appearances most consistent with focal solar lentigo/early lentiginous junctional nevus with underlying perifollicular dermal chronic inflammation and foreign body giant cell reaction. CLINICAL DATA: History: Rule-out BCC Operation: Shave biopsy Clinical Diagnosis: See Above TISSUE SUBMITTED: A/1. Central upper chest GROSS DESCRIPTION: The specimen is received in formalin, labeled with the patient's name, medical record number and Central upper chest , and consists of a jaime skin shave (0.8 x 0.4 x <0.1 cm). The epithelial surface displays a jaime-brown, variegated papule (0.2 x 0.1 cm) coming to within 0.1 cm of the closest radial margin. The specimen is inked blue, bisected, and entirely submitted. A1: 2 fragments. Dictated by: Key Parker By his/her signature below, the senior physician certifies that he/she personally conducted a microscopic examination ( gross only exam if so stated) of the described specimen(s) and rendered or confirmed the diagnosis(es) related thereto. Final Diagnosis by Radha Shaw M.D., Ph.D., Electronically signed on Tuesday March 18, 2025 at 04:56:15PM us Katina Santiago MD, MPH PATHOLOGY ORDERABLES F inal Result [facility] CLINICAL [address] [phone] from Last 3 Months Insurance [employer] WE[employer] Care Teams Billet Sawyer Relationship Specialty Start Date End Date Judy Jackson MD [address] [place] [address] PCP - General Internal Medicine 10/02/18 Self-Referred, Patient Referring Physician 03/17/17 System, Provider Not In, [place] [address] 12/26/17 Additional Source Comments The information contained in this document represents components of the legal health record. It is not the complete legal health record.[facility]
[2025-04-18 10:50] LABS: Appearance Urine Clear; Glucose Urine UA Negative (Negative); PH 6.0 (5.0-9.0); Specific Gravity - Urine 1.020 (1.005-1.025); UMIC TRIGGER UA YES
== END 2025-04-18 06:04 | disposition home or self-care (01) ==
LOC: HO.HMGCLDS 06:03
PROVIDERS: PCP Internal Medicine; Visit Provider Internal Medicine
DX: Z78.0 Asymptomatic menopausal state (principal)
CPT/HCPCS: 81001

== ENCOUNTER 2025-04-23 08:13 | Outpatient (REF) | payer OTHER, SELFPAY ==
--- OUTSIDE RECORDS SUMMARY | 2025-04-23 08:46 | XMS_ITS | Clinical Summary ---
Author Organization [facility] Address [address] [place] [address] Phone Care Team Providers Care Glass Cut Off Supervisor Name Role Phone Self-Referred, Patient Unavailable Unavailab le System, Provider Not In PhD Unavailable Unav ailable Judy Jackson MD Primary Care Provider [phone] Allergies Active Allergy Reactions Criticality Noted Date [...] AM EDT Office Visit [facility], [facility] [address] [place] [address], 5th [place] [address] Katina Santiago MD, MPH Malignant melanoma of [...] AM EDT Appointment [facility] Imaging Department, [facility] [place], Ultrasound [address] [place] [address] Katina Santiago MD, MPH [address] [place] [address] [place] [address] [email or web address] 03/10/2026 7:30 AM EDT [facility], [facility], Ultrasound [address] [place] [address] Katina Santiago MD, MPH [address] [place] [address] [place] [address] [email or web address] 03/10/2026 11:00 AM EDT Office Visit [facility], [facility] [address] [facility], 5th [place] [address] Katina Santiago MD, MPH [address] [facility] [place] [address] [email or web address] Health Maintenance Due Date Last Done Comments Adult Td,Tdap Booster 1955 LIPID PANEL 1956 DEPRESSION SCREENING 1968 HEPATITIS C SCREENING 1974 SCREENING FOR DIABETES 1991 MAMMOGRAM 1996 COLOGUARD 2001 COLONOSCOPY 2001 COLORECTAL CANCER SCREENING 2001 FIT TEST 2001 FOBT 2001 SIGMOIDOSCOPY 2001 VIRTUAL COLONOSCOPY 2001 PNEUMOCOCCAL VACCINES (50+ years) (2 of 2 - PPSV23) 09/21/2020 07/27/2020 OSTEOPOROSIS SCREENING INITIAL (ONE-TIME) 2021 INFLUENZA VACCINE (#1) 2025 , 06/10/2023, 05/09/2022, Additional history exists SMOKING STATUS SCREENING (Once After 26 Yrs) [...] (03/11/2025 12:00 AM EDT) 03/11/2025 03/12/2025 Narrative [facility] - 03/18/2025 4:57 PM EDT CASE: [id number] PATIENT: LA NENA ROSSI Date: 1955 Sex: Female [facility] Department of Pathology [address] [place] [address] CLIA License No.: [id number] Machine Etcher: Dr. Ace Madrigal M.D., Ph.D. Physician: KATINA [...] MD, MPH PATHOLOGY ORDERABLES F inal Result [facility] [address] [place] [phone] from Last 3 Months Insurance [employer] PPO [employer] PPO [employer] PPO [employer] PPO [employer] PPO [employer] PPO Care Teams Glass Cut Off Supervisor Relationship Specialty Start Date End Date Judy Jackson MD [address] [facility] [address] [place] [address] PCP - General Internal Medicine 10/02/18 Self-Referred, Patient Referring Physician 03/17/17 System, Provider Not In, PhD [address] [address] 12/26/17 Additional Source Comments The information contained in this document represents components of the legal health record. It is not the complete legal health record.[facility]
--- OUTSIDE RECORDS SUMMARY | 2025-04-23 08:46 | XMS_ITS | Patient Health Record ---
Author Organization [facility] Address [address] [place] [address] Care Team Providers Care Warehouse Material Handler Name Role Phone Judy Jackson MD Primary Care Provider Carlito Gonzalez Unavailable [phone] Allergies No Known Allergies Reason For Referral [...] 1 drink per day Moved here from [place] 2016 Nonsmoker; 1 drink per day Moved here from [place] 2016 Nonsmoker; 1 drink per day Moved here from [place] 2016 Problems Problem Type SNOMED Code ICD Code Onset Dates Problem Status W/U Status Risk Notes Problem 902514866 Encounter for screening for malignant neoplasm of colon (Z12.11) Active confirmed Problem 948113978 History of adenomatous polyp of colon (Z86.010) Active confirmed Problem 598628682 Preprocedural examination (Z01.818) Active confirmed Problem Diverticulosis of colon (035551611) Diverticulosis of colon (K57.30) Active confirmed Plan Of Treatment Pending Test Test Name Order Date Pathology 06/05/2021 Future Test Test Name Order Date COLONOSCOPY 05/23/2019 COLONOSCOPY 05/01/2021 Insurance Providers Payer Name Payer Address Payer Phone Subscriber Number Group Number Insured Name Patient Relationship to Insured Coverage Start Date Coverage End Date [facility] Navigator Plan(REFERR AL IS NEEDED) [address] [place] [id number] LA NENA ROSSI Self - patient is the insured Medical (General) History Medical History History ICD Code Melanoma as below---followed at [facility] in [place] Denies [place],DM,CVA,Lung disease,renal dise ase Colonoscopy in 05/2014--1 sm all tubular adenoma removed from cecum; colonoscopy age 51ish with removal of 5 polyps by her report--both procedures were in [place] Told of a hiatal hernia on a CT scan from 03/2019 at [facility] done for F/U of her melanoma--the HH is asymptomatic Surgical History Surgery Date(Month/Year) Melanoma right inner thigh--clear margin s--in [place] 01/2017 C- section 1993 DIRECTOR ENVIRONMENTAL surgery x2 for abnormal 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
== END 2025-04-23 08:14 | disposition home or self-care (01) ==
LOC: HO.MAMMO 08:13
PROVIDERS: PCP Internal Medicine; Visit Provider Internal Medicine
DX: Z12.31 Encounter for screening mammogram for malignant neoplasm of breast (principal)
CPT/HCPCS: 77063; 77067

== ENCOUNTER → 2025-04-23 08:30 | Outpatient (BNV) | payer OTHER, SELFPAY | PROVIDERS: PCP Internal Medicine; Visit Provider Internal Medicine | DX: Z12.31 Encounter for screening mammogram for malignant neoplasm of breast (principal) | CPT/HCPCS: 77063; 77067 ==

== ENCOUNTER 2025-04-24 13:48 | Outpatient (AMB) | payer OTHER, SELFPAY ==
[2025-04-24 14:11] VITALS: BP 114/76; PULSE 75; RESP 18; TEMP 36.7; O2SAT 95; BMI 26.4
--- NOTE | 2025-04-24 14:11 | A.OFFPC_ITS ---
Vital Signs 04/24/25 14:11 Height 5 ft 4 in Weight 154 lb BMI 26.4 BP 114/76 Blood Pressure Location Lt brachial Position Sitting Respiration 18 Pulse 75 Pulse Source Pulse Oximeter Temp 98.1 F Temp Source Oral Pulse Oximetry (%) 95 Oxygen Delivery Method Room Air Intake Visit Reasons: PE Intake Note: Pt is here today for PE. Allergies clindamycin Allergy (Verified 04/24/25 14:12) Rash sulfamethoxazole (From Bactrim) Allergy (Verified 04/24/25 14:12) Rash trimethoprim (From Bactrim) Allergy (Verified 04/24/25 14:12) Rash Medication List - Last Reconciled 04/24/25 by Judy Jackson MD cholecalciferol (vitamin D3) (Vitamin D3) 50 mcg PO DAILY magnesium 350 mg PO DAILY rosuvastatin 10 mg PO DAILY Tobacco use date assessed: 04/24/25 Fall risk assessment: No Falls in past year Last assessed Fall Risk: 04/24/25 Dental Screening Dental Screen Date: 04/24/25 Did you have a dental visit in the last 12 months?: Yes Did you have a dental problem in the last 6 months where you did not have access to dental care?: No Was dental information given to patient?: Patient has dentist HPI PE HPI Details Patient presents for physical. Hypertension is controlled on rosuvastatin. Patient's daughter is getting next April in [facility]. [facility] Medical History (Updated 04/24/25 @ 20:21 by Judy Jackson MD) Foot pain, left Hiatal hernia Osteopenia Mammogram normal Lower back pain Annual physical exam Hyperlipidemia Surgical History History of History of melanoma excision Hx of colonoscopy History of left hip replacement Family History Father No problems noted. Mother Alzheimer's dementia Other Mental health disorder Substance use disorder Social History Housing: House Patient Tobacco Use Status: Never used Tobacco e-Cigarette/Vaping Use: Never Used Second Hand Smoke Exposure: Yes (as a child) Advance Directives Date on File: 06/05/21 service: No Current occupational status: employed Current occupational exposures/hazards: No Cognitive needs: No Hearing needs: Yes Vision needs: Yes Questionnaire PHQ-9 Over the last 2 weeks, how often have you been bothered by any of the following problems? 1. Little interest or pleasure in doing things: not at all 2. Feeling down, depressed, or hopeless: not at all 3. Trouble falling or staying asleep, or sleeping too much: not at all 4. Feeling tired or having little energy: not at all 5. Poor appetite or overeating: not at all 6. Feeling bad about yourself - or that you are a failure or have let yourself or your family down: not at all 7. Trouble concentrating on things, such as reading the newspaper or watching television: not at all 8. Moving or speaking so slowly that other people could have noticed. Or the opposite - being so fidgety or restless that you have been moving around a lot more than usual: not at all 9. Thoughts that you would be better off or of hurting yourself in some way: not at all Total score: 0 Depression Screening Interpretation: Negative Depression Screening Done: Yes 40165 - PHQ-9 Billing: Yes Source: Developed by Drs. Casimiro French, Leelee Rowland, Raymond Monson and colleagues, with an educational terry from [employer]. Thrive Questionnaire Date Thrive assessed: 04/24/25 I am a: Patient What is your living situation today?: I have a steady place to live Within the past 12 months, did the food you bought not last and you didn't have the money to get more?: Never true Within the past 12 months, did you worry whether your food would run out before you got money to buy more?: Never true Do you have trouble paying for medicines?: No Do you have trouble getting transportation to medical appointments?: No Do you have trouble paying your heating and electricity bill?: No Do you have trouble taking care of your child, family member or friend?: No Do you have trouble with day-to-day activities such as bathing, preparing meals, shopping, managing finances, etc.?: No Are you currently unemployed and looking for a job?: No Are you interested in more education?: No Please select the resources that you would like help with: None Currently or been in a relationship where the following occur: No concerns reported THRIVE Score: 0 AUDIT C Alcohol Use Questionnaire (AUDIT-C) 1. How often do you have a drink containing alcohol?: 2-3 times a week 2. How many drinks containing alcohol do you have on a typical day when you are drinking?: 1 or 2 3. How often do you have six or more drinks on one occasion?: Never Total Score: 3 ANTHONY-7 AMB Questionnaire ANTHONY-7 Date ANTHONY - 7 assessed: 04/24/25 Feeling nervous, anxious, or on edge: 0 = Not at all Not being able to stop or control worryin = Not at all Worrying too much about different things: 0 = Not at all Trouble relaxin = Not at all Being so restless that it is hard to sit still: 0 = Not at all Becoming easily annoyed or irritable: 0 = Not at all Feeling afraid as if something awful might happen: 0 = Not at all Total ANTHONY-7 score (0-4 normal; 5-9 mild; 10-14 moderate; 15-21 severe): 0 Source: Developed by Drs. Casimiro French, Leelee Rowland, Raymond Monson and colleagues, with an educational terry from [employer]. ANTHONY-7 Assessment Billing ANTHONY-7 Assessment Tool: ANTHONY-7 Assessment 00830 Review of Systems Const All systems reviewed & are unremarkable except as noted in HPI and below Eyes Reports no additional complaints ENT Reports no additional complaints Card Reports no additional complaints Resp Reports no additional complaints GI Reports no additional complaints Reports no additional complaints Physical exam (Primary Care) Vital Signs: Last Vital Signs Temp 98.1 F 04/24/25 14:11 Pulse 75 04/24/25 14:11 Resp 18 04/24/25 14:11 BP 114/76 04/24/25 14:11 Pulse Ox 95 04/24/25 14:11 Oxygen Delivery Method Room Air 04/24/25 14:11 BMI result Body Mass Index 26.4 Tobacco/Smoking Status: Tobacco use Status Tobacco use date assessed 04/24/25 04/24/25 14:16 Patient Tobacco Use Status Never used Tobacco 04/24/25 14:16 e-Cigarette/Vaping Use Never Used 04/24/25 14:16 PHQ-9: PHQ-9 Score PHQ-9: Total score 0 04/24/25 14:43 Depression Screening Interpretation: Negative Thrive Assessment: Date of Thrive Assessment Date Thrive assessed 04/24/25 04/24/25 14:16 Currently or been in a relationship where the following occur: No concerns reported Const General: no acute distress HENMT Head: Yes normal to inspection Face and sinus: Yes normal facial exam Throat: Yes posterior oropharynx normal Eyes General: appearance normal, both eyes and all related structures Neck Neck: Yes no lymphadenopathy and Yes supple Resp Effort & Inspection: normal respiratory effort Auscultation: clear to auscultation bilaterally Cardio Rhythm: regular rhythm Heart sounds: S1 normal heart sound present and S2 normal heart sound present GI Inspection: Yes normal to inspection Palpation (GI): Soft to palpation Percussion: Yes normal to percussion Auscultation: normal bowel sounds Coding Level of Care Code Est Pt Prev Care >65y(52074) Diagnoses Hyperlipidemia E78.5 Hyperglycemia R73.9 Annual physical exam Z00.00 Additional Codes ANTHONY-7 Assessment Billing - ANTHONY-7 Assessment Tool: ANTHONY-7 Assessment 35839 ([id number]) PHQ-9 - 88121 - PHQ-9 Billing: Yes ([id number]) Assessment & Plan Assessment & Plan (1) Hyperlipidemia: Comment: Ca score 0, started on Crestor by [facility] 2020 Code(s): E78.5 - Hyperlipidemia, unspecified Category: Medical Plan: Continue Crestor, patient will return for fasting blood work (2) Hyperglycemia: Comment: A1C 5.7, 09/13 Code(s): R73.9 - Hyperglycemia, unspecified Category: Medical Plan: Continue ADA diet monitor A1c (3) Annual physical exam: Code(s): Z00.00 - Encounter for general adult medical examination without abnormal findings Category: Medical Plan: Well-balanced diet regular physical activity discussed with the patient she is up-to-date with the mammogram and colonoscopy
--- OUTSIDE RECORDS SUMMARY | 2025-04-24 15:57 | XMS_ITS | Patient Health Record ---
Author Organization [facility] Address [address] [place] [address] Care Team Providers Care Business Practices Supervisor Name Role Phone Judy Jackson MD Primary Care Provider Carlito Gonzalez Unavailable [phone] Allergies No Known Allergies Reason For Referral [...] 1 drink per day Moved here from [place] 2016 Nonsmoker; 1 drink per day [place] 2016 Nonsmoker; 1 drink per day [place]oved here [place] 2016 Problems Problem Type SNOMED Code ICD Code Onset Dates Problem Status W/U Status Risk Notes Problem 170829138 Encounter for screening for malignant neoplasm of colon (Z12.11) Active confirmed Problem 201244676 History of adenomatous polyp of colon (Z86.010) Active confirmed Problem 036745871 Preprocedural examination (Z01.818) Active confirmed Problem Diverticulosis of colon (396720239) Diverticulosis of colon (K57.30) Active confirmed Plan Of Treatment Pending Test Test Name Order Date Pathology 06/05/2021 Future Test Test Name Order Date COLONOSCOPY 05/23/2019 COLONOSCOPY 05/01/2021 Insurance Providers Payer Name Payer Address Payer Phone Subscriber Number Group Number Insured Name Patient Relationship to Insured Coverage Start Date Coverage End Date [facility] Navigator Plan(REFERR AL IS NEEDED) [address] [place] [address] [id number] [place] NENA ROSSI Self - patient is the insured Medical (General) History Medical History History ICD Code Melanoma as below---followed at [facility] in [place] Denies [place],DM,CVA,Lung disease,renal dise ase Colonoscopy in 05/2014--1 sm all tubular adenoma removed from cecum; colonoscopy age 51ish with removal of 5 polyps by her report--both procedures were in [place] Told of a hiatal hernia on a CT scan from 03/2019 at [facility] done for F/U of her melanoma--the HH is asymptomatic Surgical History Surgery Date(Month/Year) Melanoma right inner thigh--clear margin s--in [place] 01/2017 C- section 1993 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
--- OUTSIDE RECORDS SUMMARY | 2025-04-24 15:57 | XMS_ITS | Clinical Summary ---
Author Organization [facility] Address [address] [place] [address] Phone Care Team Providers Care Woodworking Craftsman Name Role Phone Self-Referred, Patient Unavailable Unavailab le System, Provider Not In PhD Unavailable Unav ailable Judy Jackson MD Primary Care Provider [phone] Allergies Active Allergy Reactions Criticality Noted Date [...] AM EDT Office Visit [facility], [facility] [address] [place] [address], 5th [place] [address] Katina Santiago MD, MPH Malignant melanoma of [...] AM EDT Appointment [facility], [facility], Ultrasound [address] [place] [address] Katina Santiago MD, MPH [address] [place] [address] [place] [address] [email or web address] 03/10/2026 7:30 AM EDT Appointment [facility], [facility], Ultrasound [address] [place] [address] Katina Santiago MD, MPH [address] [place] [address] [place] [address] [email or web address] 03/10/2026 11:00 AM EDT Office Visit [facility], [facility] [address] [facility], 5th [place] [address] Katina Santiago MD, MPH [address] [facility] [place] [address] [email or web address] Health Maintenance Due Date Last Done [...] (03/11/2025 12:00 AM EDT) 03/11/2025 03/12/2025 Narrative [facility] - 03/18/2025 4:57 PM EDT CASE: [id number] PATIENT: LA NENA ROSSI Date: 1955 Sex: Female [facility] Department of Pathology [address] [place] [address] CLIA License No.: [id number] Sample Maker: Dr. Ace Madrigal M.D., Ph.D. Physician: KATINA [...] MD, MPH PATHOLOGY ORDERABLES F inal Result [facility] [address] [place] [phone] from Last 3 Months Insurance [employer] Care Teams Woodworking Craftsman Relationship Specialty Start Date End Date Judy Jackson MD [address] [facility] [address] [place] [address] PCP - General Internal Medicine 10/02/18 Self-Referred, Patient Referring Physician 03/17/17 System, Provider Not In, PhD [address] [address] 12/26/17 Additional Source Comments The information contained in this document represents components of the legal health record. It is not the complete legal health record.[facility]
== END 2025-04-24 14:50 | disposition home or self-care (01) ==
LOC: HO.HMCC 13:48
PROVIDERS: PCP Internal Medicine; Visit Provider Internal Medicine
DX: E78.5 Hyperlipidemia, unspecified (principal); R73.9 Hyperglycemia, unspecified; Z00.00 Encounter for general adult medical examination without abnormal findings

== ENCOUNTER → 2025-04-24 13:48 | Outpatient (BNVA) | payer OTHER, SELFPAY | PROVIDERS: PCP Internal Medicine; Visit Provider Internal Medicine | DX: Z00.00 Encounter for general adult medical examination without abnormal findings (principal); E78.5 Hyperlipidemia, unspecified; R73.9 Hyperglycemia, unspecified | CPT/HCPCS: 96127 ==

== ENCOUNTER 2025-05-15 06:04 | Outpatient (REF) | payer OTHER, SELFPAY ==
--- OUTSIDE RECORDS SUMMARY | 2025-05-15 06:07 | XMS_ITS | Clinical Summary ---
Author Organization [facility] Address [address] [facility] [address] [place] [address] Phone Care Team Providers Care Trout Farmer Name Role Phone Self-Referred, Patient Unavailable Unavailab le System, Provider Not In PhD Unavailable Unav ailable Judy Jackson MD Primary Care Provider [phone] Allergies Active Allergy Reactions Criticality Noted Date Comments Sulfamethoxazole-Trimethoprim Hives 2017 Clindamycin Hcl Hives 09/26/2017 Medications cholecalciferol (VITAMIN D3) 2,000 unit capsule Take 2,000 Units by mouth daily. Active magnesium 30 mg tablet Take 400 mg by mouth daily. Active Active Problems Problem Noted Date Diagnosed Date Melanoma of thigh, right 03/25/2017 Encounters Date Type Department Care Team Description 05/06/2025 9:41 AM EDT - 05/06/2025 11:59 PM EDT Hospital Encounter [facility], [facility], Ultrasound [address] [place] [address] Katina Santiago MD, MPH Discharge Disposition: Home or Self Care 05/06/2025 Telephone Center for [facility], [facility] [address] [place] [address] Renetta Hyde, RN Results 03/11/2025 10:00 AM EDT Office Visit [facility], [facility] [address] [place] [address] Katina Santiago MD, MPH Malignant melanoma of [...] Care Team (Late st Contact Info) Description 03/10/2026 7:30 AM EDT Appointment [facility], [facility], Ultrasound [address] [place] [address] Katina Santiago MD, MPH [address] [facility] [place] [address] [email or web address] 03/10/2026 11:00 AM EDT Office Visit [facility] for [facility], [facility] [address], 5th [place] [address] Katina Santiago MD, MPH [address] [place] [address] [place] [address] [email or web address] Health Maintenance Due Date Last Done [...] Procedure Name Priority Date/Time Associated Diagnosis Comments US INGUINAL NON-HERNIA EVALUATION (RIGHT) Routine 05/06/2025 10:13 AM EDT Malignant melanoma of right lower extremity including hip DERMATOPATHOLOGY Routine 03/11/2025 12:0 0 AM EDT from Last 3 Months Results * US INGUINAL NON-HERNIA EVALUATION (RIGHT) (05/06/2025 10:13 AM EDT) Anatomical Region Laterality Modality Chest Ultrasound Other 05/06/2025 10:1 4 AM EDT Impressions 05/06/2025 10:29 AM EDT No lymphadenopathy. Narrative 05/06/2025 10:29 AM EDT US INGUINAL NON-HERNIA EVALUATION (RIGHT) Referring clinician's provided indication for this examination in [facility]: Mass: Soft Tissue; History of melanoma on RLE, never received SLNB. Surveillance R inguinal LN basin US TECHNIQUE: Abdominal Ultrasound Limited focused assessment of the right inguinal region. COMPARISON: US LOWER EXTREMITY NON-VASCULAR LIMITED (RIGHT) FINDINGS: Focused ultrasound of the area of clinical concern in the right inguinal region. Multiple morphologically normal lymph nodes are seen in the right inguinal region, the largest measuring 2.0 x 0.6 x 0.5 cm, previously 2.3 x 0.6 cm. Procedure Note William Taveras MD - 05/06/2025 US INGUINAL NON-HERNIA EVALUATION (RIGHT) Referring clinician's provided indication for this examination in [facility]:Mass: Soft Tissue; History of melanoma on RLE, never received SLNB.Surveillance R inguinal LN basin US TECHNIQUE: Abdominal Ultrasound Limited focused assessment of the rightinguinal region. COMPARISON: US LOWER EXTREMITY NON-VASCULAR LIMITED (RIGHT) FINDINGS: Focused ultrasound of the area of clinical concern in the right inguinalregion. Multiple morphologically normal lymph nodes are seen in the rightinguinal region, the largest measuring 2.0 x 0.6 x 0.5 cm, previously 2.3x 0.6 cm. IMPRESSION: No lymphadenopathy. us Katina Santiago MD, MPH IMG US EXTREMITY Final Result * Dermatopathology (03/11/2025 12:00 AM EDT) 03/11/2025 03/12/2025 Merged with [facility] - 03/18/2025 4:57 PM EDT CASE: [id number] PATIENT: LA NENA ROSSI Date: 1955 Sex: Female [facility] Department of Pathology [address] [place] [address] License No.: [id number] Set Up Mechanic Coil Winding Machines: Dr. Ace Madrigal M.D., Ph.D. Physician: KATINA [...] on Tuesday March 18, 2025 at 04:56:15PM Katina Santiago MD, MPH PATHOLOGY ORDERABLES F inal Result [facility] [address] [place] [phone] from Last 3 Months Insurance [employer] PPO [employer] P[employer] P[employer] WE[employer] PPO [employer] PPO Care Teams Trout Farmer Relationship Specialty Start Date End Date Judy Jackson MD [address] [facility] [address] PCP - General Internal Medicine 10/02/18 Self-Referred, Patient Referring Physician 03/17/17 System, Provider Not In, [place] [address] 12/26/17 Additional Source Comments The information contained in this document represents components of the legal health record. It is not the complete legal health record.[facility]
--- OUTSIDE RECORDS SUMMARY | 2025-05-15 06:07 | XMS_ITS | Patient Health Record ---
Author Organization [facility] Address [address] [place] [address] Care Team Providers Care Retail Parts Pro Name Role Phone Judy Jackson MD Primary Care Provider Carlito Gonzalez Unavailable [phone] Allergies No Known Allergies Reason For Referral [...] 1 drink per day Moved here from [place] 2016 Nonsmoker; 1 drink per day Moved here from [place] 2016 Nonsmoker; 1 drink per day Moved here from [place] 2016 Problems Problem Type SNOMED Code ICD Code Onset Dates Problem Status W/U Status Risk Notes Problem 535183559 Encounter for screening for malignant neoplasm of colon (Z12.11) Active confirmed Problem 701207840 History of adenomatous polyp of colon (Z86.010) Active confirmed Problem 757260163 Preprocedural examination (Z01.818) Active confirmed Problem Diverticulosis of colon (000732090) Diverticulosis of colon (K57.30) Active confirmed Plan Of Treatment Pending Test Test Name Order Date Pathology 06/05/2021 Future Test Test Name Order Date COLONOSCOPY 05/23/2019 COLONOSCOPY 05/01/2021 Insurance Providers Payer Name Payer Address Payer Phone Subscriber Number Group Number Insured Name Patient Relationship to Insured Coverage Start Date Coverage End Date [facility] Navigator Plan(REFERR AL IS NEEDED) [address] [place] [address] [id number] [place] NENA ROSSI Self - patient is the insured Medical (General) History Medical History History ICD Code Melanoma as below---followed at [facility] in [place] Denies SC,DM,CVA,Lung disease,renal dise ase Colonoscopy in 05/2014--1 sm all tubular adenoma removed from cecum; colonoscopy age 51ish with removal of 5 polyps by her report--both procedures were in [place] Told of a hiatal hernia on a CT scan from 03/2019 at [facility] done for F/U of her melanoma--the HH is asymptomatic Surgical History Surgery Date(Month/Year) Melanoma right inner thigh--clear margin s--in [place] 01/2017 C- section 1993 AP[employer]MENT [employer] surgery x2 for abnormal 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
[2025-05-15 10:34] LABS: MANUAL DIFF FLAG NO
[2025-05-15 10:40] LABS: Hematocrit 45.9 % (37.0-47.0); Hemoglobin 15.1 g/dl (12.0-16.0); Imm Gran Abs Auto 0.01 X10*3/uL (0.00-0.03); Imm Gran Pct Auto 0.2 % (0.0-0.4); Lymphocytes Absolute Auto 1.7 X10*3/uL (1.2-4.9); Mean Corpuscular HGB Conc 32.9 g/dl (31.0-35.0); Mean Corpuscular Hemoglobin 29.8 pg (27.0-33.0); Mean Corpuscular Volume 90.5 fL (80.0-98.0); NRBC Abs Auto 0.000 X10*3/uL (0.0-0.012); NRBC Pct Auto 0.0 /100WBC (0.0-0.2); Platelet Count 282 X10*3/uL (160-400); Red Blood Count 5.07 X10*6/uL (4.20-5.50); White Blood Count 6.4 X10*3/uL (4.8-10.8)
[2025-05-15 10:52] LABS: Hemoglobin A1C 159.7064 umol/L; Total Hemoglobin (HGBA1C) 3944.6253 umol/L
[2025-05-15 11:22] LABS: Alanine Aminotransferase 23 U/L (0-31); Albumin Level 4.4 g/dL (3.5-5.0); Alkaline Phosphatase 81 U/L (39-117); Anion Gap 10 (12-20); Aspartate Amino Transferase 26 U/L (5-31); Blood Urea Nitrogen 15 mg/dL (9-16); Calcium 8.9 mg/dL (8.4-10.2); Carbon Dioxide 29 mmol/L (22-29); Chloride 108 mmol/L (96-108); Cholesterol 169 mg/dL (<200); Estimated Glomerular Filt Rate > 60; HDL Cholesterol 62 mg/dL (>40); Potassium 4.8 mmol/L (3.3-5.1); Sodium 142 mmol/L (135-145); Total Protein 6.7 g/dL (6.5-8.0); Triglycerides 63 mg/dL (<150)
== END 2025-05-15 06:05 | disposition home or self-care (01) ==
LOC: HO.HMGCLDS 06:04
PROVIDERS: PCP Internal Medicine; Visit Provider Internal Medicine
DX: E78.5 Hyperlipidemia, unspecified (principal); R73.9 Hyperglycemia, unspecified; E55.9 Vitamin D deficiency, unspecified
CPT/HCPCS: 36415; 80053; 80061; 82306; 83036; 85025